=== PATIENT | male | born 1990 ===

== ENCOUNTER 2023-06-16 23:45 | Emergency (ER) | payer OTHER, BC ==
[2023-06-17] MEDS ORDERED: Lidocaine 4% 1 each Patch TOP PRN (00:41)
[2023-06-17] MEDS ORDERED: Acetaminophen 325 MG Tab PO ONE (00:42)
[2023-06-17 01:37] VITALS: BP 123/89; PULSE 64
== END 2023-06-17 01:36 | disposition home or self-care (01) ==
LOC: MW.ED 23:45
DX: R07.89 Other chest pain (principal); V86.36XA Unspecified occupant of dirt bike or motor/cross bike injured in traffic accident, initial encounter
CPT/HCPCS: 71046; 93005; 99283; A9270; 93010